=== PATIENT | male | born 1975 | race Caucasian/White ===

== ENCOUNTER → 2024-11-26 | Outpatient (CLI) | payer OTHER, SELFPAY ==
--- NOTE | 2024-11-26 08:06 | CDU_ITS ---
Reason For Study Reason For Study: Carotid stenosis Rt. Velocities/BP Lt. Velocities/BP Prox CCA 91.9/29.6 cm/sec. Prox CCA 106.9/20.1 cm/sec. Mid CCA 103.5/37.2 cm/sec. Mid CCA 117/28.6 cm/sec. Dist CCA 101.1/37.2 cm/sec. Dist CCA 97.4/21.2 cm/sec. Prox ICA 89.4/34.4 cm/sec. Prox ICA 59.8/21.1 cm/sec. Mid ICA 94.9/42.1 cm/sec. Mid ICA 57/19.2 cm/sec. Dist ICA 90.5/38.8 cm/sec. Dist ICA 50.4/19.2 cm/sec. Rt. ICA/CCA = 0.92. Lt. ICA/CCA = 0.51. Prox ECA 117.4/26.1 cm/sec. Prox ECA 88.8/17.6 cm/sec. Rt. Vert. 47.4/13.3 cm/sec. Lt. Vert. 35.1/10.9 cm/sec. Right Extracranial There is intimal thickening but no significant atherosclerotic plaque noted in the right common carotid artery. There is homogeneous, smooth atherosclerotic plaque noted in the right internal carotid artery. There is intimal thickening but no significant atherosclerotic plaque noted in the right external carotid artery. Antegrade flow is noted in the right vertebral artery. Left Extracranial There is intimal thickening but no significant atherosclerotic plaque noted in the left common carotid artery. There is heterogeneous, irregular atherosclerotic plaque noted in the left internal carotid artery. There is intimal thickening but no significant atherosclerotic plaque noted in the left external carotid artery. Antegrade flow is noted in the left vertebral artery. Procedure Carotid Duplex 55217. This is a Carotid Duplex examination using B-mode, color flow and specral Doppler. Exam performed in department. VL/Carotid Duplex Ultrasound Interpretation Summary Mild (<50%) stenosis right extracranial internal carotid. Mild (<50%) stenosis left extracranial internal carotid. Patent and antegrade vertebrals bilaterally. Ordering Physician: Latoya Gallagher Referring Physician: Latoya Gallagher Performed By: Tangela Gaytan RVT
--- OUTSIDE RECORDS SUMMARY | 2024-11-26 08:31 | XMS RPT_ITS | CCD ---
Author Organization [facility] Care Team Providers Care Holistic Pulser Name Role Phone YUN SOL MD Primary Care Unavailable YUN SOL MD Attending Unavailable CARLITA HICKMAN Consulting Unavailable YUN SOL MD Admitting Unavailable PROVIDER, UNKNOWN Consulting Unavailable PROVIDER, UNKNOWN Consulting Unavailable PROVIDER, UNKNOWN Consulting Unavailable YUN SOL MD Attending Unavailable CARLITA HICKMAN Consulting Unavailable YUN SOL MD Admitting Unavailable YUN SOL MD Primary Care Unavailable PROVIDER, UNKNOWN Consulting Unavailable PROVIDER, UNKNOWN Consulting Unavailable PROVIDER, UNKNOWN Consulting Unavailable Aileen ESPINOZA, Dr. Klein Primary Care Provider [phone] Dr. Latoya Gallagher MD Attending Provider Dr. Latoya Gallagher MD Referring Provider Latoya Gallagher Primary Care Unavailable Latoya Gallagher Attending Unavailable Latoya Gallagher Referring Unavailable Latoya Gallagher Attending Unavailable Latoya Gallagher Referring Unavailable Latoya Gallagher Primary Care Unavailable Latoya Gallagher Attending Unavailable Medications Current Medications Medication Drug Class(es) Dates Sig (Normalized) Sig (Original) aspirin 325 mg oral tablet (1 source) Platelet Aggregation Inhibitor, Nonsteroidal Anti-inflammatory Drug Start: 08-31-2021 take 1 tablet by mouth once daily Aspirin 325 mg tablet Active 325 mg PO DAILY August 31, 2021 12:00am clopidogrel 75 mg oral tablet (3 sources) [id number] Platelet Inhibitor Start: 08-31-2021 End: 11-01-2024 take 1 tablet by mouth once daily Clopidogrel 75 mg tablet Active 75 mg PO daily 90 0 November 01, 2024 7:45am folic acid 1 mg oral tablet (2 sources) Start: 08-31-2021 End: 05-02-2024 take 1 tablet by mouth once daily Folic Acid 1 mg tablet Active 1 mg PO daily 90 0 May 02, 2024 8:10am lisinopril 2.5 mg oral tablet (3 sources) Angiotensin Converting Enzyme Inhibitor Start: 08-31-2021 End: 11-01-2024 take 1 tablet by mouth once daily Lisinopril 2.5 mg tablet Active 2.5 mg PO daily 90 0 November 01, 2024 7:45am Semaglutide (Weight Loss) (1 source) Start: 11-01-2024 Semaglutide (Weight Loss) (Regis) 0.25 mg/0.5 mL pen injector Active 0.25 mg SC EVERY WEEK 2 November 01, 2024 12:00am administer weeks 1 through 4 of therapy Completed/Discontinued Medications Medication Drug Class(es) Dates Sig (Normalized) Sig (Original) atorvastatin 40 mg oral tablet (7 sources) HMG-CoA Reductase Inhibitor Start: 05-02-2024 End: 11-01-2024 Atorvastatin 40 mg tablet Discontinued 40 mg PO daily November 01, 2024 7:36am November 01, 2024 8:00am take in combination with 20mg for a total of 60mg Start: 08-31-2021 End: 11-01-2024 take 1 tablet by mouth once daily Atorvastatin 20 mg tablet Discontinued 20 mg PO daily November 01, 2024 7:36am November 01, 2024 8:00am cyclobenzaprine hydrochloride 10 mg oral tablet (1 source) Muscle Relaxant Start: 09-15-2021 End: 05-02-2024 take 1 tablet by mouth at bedtime as needed for muscle spasms Cyclobenzaprine 10 mg tablet Discontinued 10 mg PO BEDTIME as needed for muscle spasm 14 September 15, 2021 12:00am May 02, 2024 7:50am predniSONE 10 mg oral tablet (1 source) Start: 09-15-2021 End: 05-02-2024 take 4 tablets by mouth once daily, then take 3 tablets by mouth once daily, then take 2 tablets by mouth once daily, then take 1 tablet by mouth once daily Prednisone 10 mg tablet Discontinued 10 mg PO DAILY 30 0 September 15, 2021 12:00am May 02, 2024 7:48am 4 tablets daily for 3 days, then 3 tablets daily for 3 days, then 2 tablets daily for 3 days, then 1 tablet daily for 3 days Problems Active Problems Problem Classification Problem Date Documented Da te Episodic/Chronic Disorders of lipid metabolism (3 sources) Hyperlipidemia; Translations: [Hyperlipidemia, unspecified] Onset: 11-01-2024 05-02-2024 Chronic Essential hypertension (3 sources) Hypertensive disorder; Translations: [Essential (primary) hypertension] Onset: 11-01-2024 08-31-2021 Chronic Immunizations and screening for infectious disease (1 source) Patient encounter status; Translations: [Encounter for screening for COVID-19] 05-01-2024 Episodic Nutritional deficiencies (2 sources) Vitamin D deficiency; Translations: [Vitamin D deficiency, unspecified] Onset: 11-01-2024 11-01-2024 Chronic Occlusion or stenosis of precerebral arteries (3 sources) Carotid artery stenosis; Translations: [Occlusion and stenosis of unspecified carotid artery] Onset: 06-01-2024 11-01-2024 Chronic Other circulatory disease (1 source) History of transient ischemic attack; Translations: [Personal history of transient ischemic attack (TIA), and cerebral infarction without residual deficits] 11-01-2024 Episodic Other circulatory disease (1 source) Personal history of transient ischemic attack (TIA), and cerebral infarction without residual deficits; Translations: [Personal history of transient ischemic attack (TIA), and cerebral infarction without residual deficits] Onset: 11-01-2024 Episodic Spondylosis; intervertebral disc disorders; other back problems (1 source) Backache; Translations: [Dorsalgia, unspecified] 09-15-2021 Episodic Sprains and strains (1 source) Lower back injury; Translations: [Strain of muscle, fascia and tendon of lower back, initial encounter] 05-01-2024 Episodic Past or Other Problems Problem Classification Problem Date Documented Da te Episodic/Chronic Administrative/social admission (1 source) Persons encountering health services in other specified circumstances; Translations: [Persons encountering health services in other specified circumstances] Onset: 06-01-2024 Episodic Other screening for suspected conditions (not mental disorders or infectious disease) (1 source) Encounter for screening for malignant neoplasm of colon; Translations: [Encounter for screening for malignant neoplasm of colon] Onset: 06-01-2024 Episodic Residual codes; unclassified (1 source) Immunization not carried out because of patient refusal; Translations: [Immunization not carried out because of patient refusal] Onset: 06-01-2024 Episodic Results Test Name Value Interpretation Reference Range [facility] Internal Medicine Office Vis iton 10-30-2024 Internal Medicine Office Visit [facility] [address] [place], [place] [address] OFFICE VISIT Date of Service: 11/01/24 MR#: [id number] Acct: [id number] Name: MARTIR COELHO Rep #: [id number] : 1975 Provider: Dr. Latoya herrera MD Age/Sex: 49/M Location: [facility] Status: Signed Intake Vital Signs 05/02/24 07:56 11/01/24 07:37 Height 5 ft 7 in 5 ft 7 in Weight: 181 lb BMI 28.3 BP 122/84 H Blood Pressure Location Lt brachial Position Sitting Respiration 14 Pulse 58 L Pulse Source Monitor Temp 97.6 F L Temp Source Temporal Pulse Oximetry (%) 97 Oxygen Delivery Method room air Intake Visit Reasons: 6 M FU Stock Holder Required: No Is patient in pain?: No Allergies No Known Allergies Allergy (Verified 11/01/24 07:32) Medications ???Medication ???Instructions ???Recorded ???Confirmed ???Type aspirin 325 mg tablet 325 mg PO DAILY 08/31/21 11/01/24 History folic acid 1 mg tablet 1 mg PO QDAY #90 tabs 05/02/2401/15 Rx atorvastatin 20 mg tablet 20 mg PO QHS #90 tabs 11/01/24 Rx atorvastatin 40 mg tablet 40 mg PO QHS #90 tabs 11/01/24 Rx clopidogrel 75 mg tablet 75 mg PO QDAY #90 tabs 11/01/24 Rx lisinopril 2.5 mg tablet 2.5 mg PO QDAY #90 tabs 11/01/24 0 11/01/24 Rx semaglutide (weight loss) 0.25 0.25 mg (0.5 mL) subcut QWEEK #2 m L 11/01/24 11/01/24 Rx mg/0.5 mL subcutaneous pen injector (Wegovy) [facility] Medical History History of head injury Borderline hyperlipidemia Acute lumbar myofascial strain History of TIA (transient ischemic attack) Hypertension Surgical History S/P ACL repair History of eye surgery Family History Father Age: 73 High cholesterol Hypertension CVA (cerebral vascular accident) Diabetes Grandmother Heart disease Grandfather CVA (cerebral vascular accident) Social History household members: spouse current occupational status: employed current occupation: owns a [employer] Smoking Status: Never smoker alcohol intake: current alcohol intake frequency: holidays/special occasions only substance use type: does not use do you feel safe at home: Yes HPI HPI Details: MARTIR COELHO, is a 49 M who presents to the office today for a follow up. He is due for some routine blood work and is up to date on his screening. He previously declined any immunizations. He doesn't smoke and does need refills. He reports he is eating healthy some of the time and staying active. He doesn't check his blood pressure at home routinely. He states when he does check it, it is well controlled in the 120s/80s. He is taking his medication as prescribed without problems. He does try to monitor his salt and caffeine intake. He has a history of a TIA back in 2003. He reports he was visiting with his dad and reports he lost the use of the left side of his body. He states he had multiple episodes that day. He was admitted to [facility] and treated. He has been taking all of his medications as prescribed without problems. He states he hasn't had any further episodes since then. He was told he had carotid stenosis, but states it was recommended he be managed medically. He did see neurosurgery and neurology, but no longer sees any specialists. He reports he doesn't know if he heard anything about the carotid US. The patient has concerns about his weight. He reports he is interested in trying wegovy. He has no questions or concerns at this time. ROS Const Constitutional: Positive for weight change (weight gain); No body ache, chills, excessive sweating, fatigue, fever(s), frequent falls, headache(s), snoring, weakness, sleep problems or change in appetite Eyes Eyes: Positive for change in vision; No blurry vision, eye pain or Light sensitivity ENT ENT: No abnormal hearing, ear or mastoid pain, tinnitus, nasal congestion, headache(s), neck pain or sore throat Resp Respiratory: No cough, shortness of breath, snoring or wheezing Cardio Cardiology: No chest pain at rest, chest pain with exertion, excessive sweating, shortness of breath, dyspnea on exertion, lightheadedness, orthopnea, palpitations or other (no leg swelling) Gastro GI: No abdominal pain, change in bowel habits, constipation, cramping, diarrhea, nausea/dyspepsia or vomiting Genitourinary Male: No difficulty urinating, burning urination, painful urination, urinary incontinence or urinary frequency Musc Musculoskeletal: No abnormal gait, joint pain, back pain, limited range of motion, neck pain, numbness or tingling Skin Skin: No dry skin, redness, lesio (more content not included)... Normal [facility] Internal Medicine Office Vis iton 05-01-2024 Internal Medicine Office Visit [facility] [address] [place] [address] [place] [address] OFFICE VISIT Date of Service: 05/02/24 MR#: [id number] Acct: [id number] Name: MARTIR COELHO Rep #: [id number] : 1975 Provider: Dr. Latoya herrera MD Age/Sex: 49/M Location: [facility] Status: Signed Intake Vital Signs 08/31/21 07:02 05/02/24 07:56 Height 5 ft 7 in 5 ft 7 in Weight: 178 lb 6 oz BMI 27.9 BP 122/80 H Blood Pressure Location Lt brachial Position Sitting Respiration 12 Pulse 75 Pulse Source Monitor Temp 96.7 F L Temp Source Temporal Pulse Oximetry (%) 98 Oxygen Delivery Method room air Intake Visit Reasons: EST NEW PT - [facility] SENT Chief Complaint: est Stock Holder Required: No Accompanied by: Self Is patient in pain?: No Allergies No Known Allergies Allergy (Verified 05/02/24 07:47) Medications ???Medication ???Instructions ???Recorded ???Confirmed ???Type aspirin 325 mg tablet 325 mg PO DAILY 08/31/21 05/02/24 History atorvastatin 20 mg tablet 20 mg PO QHS #90 tabs 05/02/2402/14 Rx clopidogrel 75 mg tablet 75 mg PO QDAY #90 tabs 05/02/24 Rx folic acid 1 mg tablet 1 mg PO QDAY #90 tabs 05/02/2402/14 Rx lisinopril 2.5 mg tablet 2.5 mg PO QDAY #90 tabs 05/02/24 0 05/02/24 Rx Have you fallen in the past year?: No Nurse's Note: refills needed establishing [facility] Medical History (Updated 05/02/24 @ 08:[address] Latoya Gallagher MD) History of head injury Borderline hyperlipidemia Acute lumbar myofascial strain History of TIA (transient ischemic attack) Hypertension Surgical History (Updated 05/02/24 @ 08:[address] Latoya Gallagher MD) S/P ACL repair History of eye surgery Family History (Updated 05/02/24 @ 08:[address] Latoya Gallagher MD) Father Age: 73 High cholesterol Hypertension CVA (cerebral vascular accident) Diabetes Grandmother Heart disease Grandfather CVA (cerebral vascular accident) Social History (Updated 05/02/24 @ 08:[address] Latoya Gallagher MD) household members: spouse current occupational status: employed current occupation: owns a [employer] Smoking Status: Never smoker alcohol intake: current alcohol intake frequency: holidays/special occasions only substance use type: does not use do you feel safe at home: Yes HPI HPI Chief Complaint: est Details: MARTIR COELHO, is a 49 M who presents to the office today to establish care. He was seeing Dr. Sol and last saw them in January. He is up to date on his routine blood work and is due for some colon screening. He doesn't want any immunizations. He doesn't smoke and does need refills. He reports he is eating healthy most of the time and staying active. The patient has been on blood pressure medications for 21 years. He doesn't check his blood pressure at home routinely. He states when he does check it, it is well controlled. He is taking his medication as prescribed without problems. He does try to monitor his salt and caffeine intake. He has a history of a TIA back in 2003. He reports he was visiting with his dad and reports he lost the use of the left side of his body. He states he had multiple episodes that day. He was admitted to [facility] and treated. He has been taking all of his medications as prescribed without problems. He states he hasn't had any further episodes since then. He changed his lifestyle dramatically and lost weight following that. He was told he had carotid stenosis, but states it was recommended he be managed medically. He did see neurosurgery and neurology, but no longer sees any specialists. He has no questions or concerns at this time. ROS Const Constitutional: Positive for weight change (fluctuates); No body ache, excessive sweating, fatigue, fever(s), frequent falls, headache(s), snoring, weakness, sleep problems or change in appetite Eyes Eyes: No blurry vision, change in vision, eye pain or Light sensitivity ENT ENT: No abnormal hearing, ear or mastoid pain, tinnitus, nasal congestion, headache(s), neck pain or sore throat Resp Respiratory: No cough, shortness of breath, snoring or wheezing Cardio Cardiology: No chest pain at rest, chest pain with exertion, excessive sweating, shortness of breath, dyspnea on exertion, lightheadedness, orthopnea, palpitations or other (no leg swelling) Gastro GI: No abdominal pain, change in bowel habits, constipation, cramping, diarrhea, nausea/dyspepsia or vomiting Genitourinary Male: No difficulty urinating, burning urination, painful urination, urinary incontinence, urinary frequency or blood in urine Musc Musculoskeletal: No abnormal gait, joint pain, back pain, limited range of motion, neck pain, numbness, stiffness, tingling or Arthritis Skin Skin: No dry skin, redness, lesions, itchy eyes, rash or wounds (more content not included)... Normal [facility] LIPID PROFILEon 01-06-2024 Cholesterol [Mass/Vol] 227 mg/dL Normal 0 - 240 [facility] Comment on above: Performed By: #### 2 [id number] #### [facility],[address] [place] [address] Cholesterol in HDL [Mass/Vol] 60 mg/dL Normal 40 - 60 [facility] Comment on above: Result Comment: PERF ORMED AT [facility] (SEE SCANNED REPORT) CCL REFERENCE RANGE = > 39 mg/dL Performed By: #### 2 [id number] #### [facility],[address] [place] [address] Cholesterol in LDL [Mass/Vol] 106 mg/dL Normal 0 - 129 [facility] Comment on above: Result Comment: ==== FOLLOWING RESULTS REPORTED IN ERROR Comment CCL REFERENCE RA<-- *Previously reported in error 01/06/24.1145.JAM. Performed By: #### 2 [id number] #### [facility],[address] [place] [address] Cholesterol.total/C holesterol in HDL [Mass ratio] 3.8 {ratio} Normal 0.0 - 5.0 [facility] Comment on above: Performed By: #### 2 [id number] #### [facility],[address] [place] [address] ERROR DUE TO ENTRY ERROR Normal [facility] Comment on above: Result Comment: OMIS LATOYA OF UNITS Performed By: #### 2 [id number] #### [facility],[address] [place] [address] Lipid 1996 panel Normal [facility] Comment on above: Result Comment: CORRECTED REPORT LIPID PROFILE Performed By: #### 2 [id number] #### [facility],[address] [place] [address] Triglyceride [Mass/Vol] 303 mg/dL High 0 - 150 [facility] Comment on above: Performed By: #### 2 90111 #### [facility],[address] [place] [address] CBC + DIFFon 01-05-2024 Baso # 0.02 x10EE3/UL Normal 0.00 - 0.10 [facility] Comment on above: Performed By: #### 2 64486 #### [facility],[address] [place], [place] [id number] Basophils/100 WBC (Bld) 0.3 % Normal 0.0 - 2.0 [facility] Comment on above: Performed By: #### 2 74817 #### [facility],[address] [place] [address] CBC + DIFF Normal [facility] Comment on above: Result Comment: CBC- COMPLETE BLOOD COUNT Performed By: #### 2 20247 #### [facility],[address] [place] [address] EO # 0.10 x10EE3/UL Normal 0.00 - 0.50 [facility] Comment on above: Performed By: #### 2 35048 #### [facility],[address] [place] [address] Eosinophils/100 WBC (Bld) 1.8 % Normal 0.0 - 7.0 [facility] Comment on above: Performed By: #### 2 97430 #### [facility],[address] [place] [address] Erythrocyte distribution width (RBC) [Ratio] 14.2 % Normal 12.0 - 15.6 [facility] Comment on above: Performed By: #### 2 33839 #### [facility],[address] [place] [address] Hematocrit (Bld) [Volume fraction] 45.5 % Normal 40.0 - 52.0 [facility] Comment on above: Performed By: #### 2 [id number] #### [facility],[address] [place] [address] Hemoglobin (Bld) [Mass/Vol] 15.3 g/dL Normal 13.0 - 17.5 [facility] Comment on above: Performed By: #### 2 [id number] #### [facility],[address] [place] [address] Lymph # 2.16 x10EE3/UL Normal 0.80 - 2.80 [facility] Comment on above: Performed By: #### 2 44933 #### [facility],[address] [place] [address] Lymphocytes/100 WBC (Bld) 38.6 % Normal 20.0 - 45.0 [facility] Comment on above: Performed By: #### 2 77704 #### [facility],[address] [place] [address] MANUAL DIFF N/A Normal [facility] Comment on above: Performed By: #### 2 46146 #### [facility],[address] [place] [address] MCH (RBC) [Entitic mass] 30 pg Normal 27 - 33 [facility] Comment on above: Performed By: #### 2 97396 #### [facility],[address] [place] [address] MCHC 34 X10 3 Normal 32 - 36 [facility] Comment on above: Performed By: #### 2 90896 #### [facility],[address] [place] [address] MCV (RBC) [Entitic vol] 90 fL Normal 81 - 98 [facility] Comment on above: Performed By: #### 2 33299 #### [facility],[address] [place] [address] Karnes # 0.53 x10EE3/UL Normal 0.20 - 1.00 [facility] Comment on above: Performed By: #### 2 05940 #### [facility],[address],[place] [address] MONOS % 9.4 % Normal 0.0 - 10.0 [facility] Comment on above: Performed By: #### 2 32189 #### [facility],[address] [place] [address] Morphology Juice (Bld) [Interp] N/A Normal [facility] Comment on above: Performed By: #### 2 65487 #### [facility],[address] [place] [address]103 Neut # 2.79 x10EE3/UL Normal 1.50 - 7.10 [facility] Comment on above: Performed By: #### 2 34305 #### [place] [id number] Neutrophils/100 WBC (Bld) 49.9 % Normal 46.0 - 76.0 [facility] Comment on above: Performed By: #### 2 62185 #### [place] [id number] PLATELET 241 x10EE3/UL Normal 150 - 450 [facility] Comment on above: Performed By: #### 2 40771 #### [place] [address] Platelet mean volume (Bld) [Entitic vol] 6.9 fL Normal 6.4 - 10.5 [facility] Comment on above: Result Comment: AUTO MATED DIFFERENTIAL Performed By: #### 2 [id number] #### [address] [address] RBC 5.05 x 10EE6/UL Normal 4.50 - 6.00 [facility] Comment on above: Performed By: #### 2 30221 #### [address] [address] WBC 5.6 x 10EE3/UL Normal 4.5 - 10.8 [facility] Comment on above: Performed By: #### 2 15568 #### [place] [address],[place] [address] CMP with eGFRon 01-05-2024 AGE 48 years Normal [facility] Comment on above: Performed By: #### 2 74874 #### [facility],[address] [place] [address] Albumin [Mass/Vol] 3.7 g/dL Normal 3.4 - 5.0 [facility] Comment on above: Performed By: #### 2 04390 #### [facility],[address] [place] [address] Albumin/Globulin [Mass ratio] 1.2 {ratio} Normal 0.9 - 1.6 [facility] Comment on above: Performed By: #### 2 61576 #### [facility],[address] [place] [address] ALK PHOS 69 U/L Normal 46 - 116 [facility] Comment on above: Performed By: #### 2 46605 #### [facility],[address] [place] [address]372 ALT [Catalytic activity/Vol] 54 U/L Normal 16 - 63 [facility] Comment on above: Performed By: #### 2 21191 #### [facility],[address] [place] [address] Anion gap [Moles/Vol] 14 mmol/L Normal 10 - 20 [facility] Comment on above: Performed By: #### 2 21271 #### [facility],[address] [place] [address]275 AST [Catalytic activity/Vol] 31 U/L Normal 15 - 37 [facility] Comment on above: Performed By: #### 2 07246 #### [facility],[address] [place] [address] 70489 B/C RATIO 16 ratio Normal 0 - 30 [facility] Comment on above: Performed By: #### 2 69461 #### [facility],[address] [place] [address] 29318 Bilirubin [Mass/Vol] 0.5 mg/dL Normal 0.2 - 1.0 [facility] Comment on above: Performed By: #### 2 35895 #### [facility],[address] [place] [address] 24951 Calcium [Mass/Vol] 8.8 mg/dL Normal 8.5 - 10.1 [facility] Comment on above: Performed By: #### 2 33466 #### [facility],[address] [place] [address] 62197 Chloride [Moles/Vol] 105 mmol/L Normal 98 - 107 [facility] Comment on above: Performed By: #### 2 81625 #### [facility],[address] [place] [address] 13476 CMP with eGFR Normal [facility] Comment on above: Result Comment: COMP REHENSIVE METABOLIC PANEL Performed By: #### 2 56310 #### [facility],[address] [place] [address] 85242 CO2 [Moles/Vol] 26.3 mmol/L Normal 21.0 - 32.0 [facility] Comment on above: Performed By: #### 2 15307 #### [facility],[address] [place] [address] 09755 Creatinine [Mass/Vol] 1.13 mg/dL Normal 0.70 - 1.30 [facility] Comment on above: Performed By: #### 2 09660 #### [facility],[address] [place] [address] 93159 GFR/1.73 sq M.predicted among non-blacks MDRD (S/P/Bld) [Vol rate/Area] mL/min/{1.73_m2} Normal 60 - 999 [facility] Comment on above: Performed By: #### 2 33748 #### [facility],[address] [place] [address] 94707 Result Comment: ACCO RDING TO THE NATIONAL KIDNEY DISEASE EDUCATION PROGRAM(NKDE), A NORMAL eGFR IS A VALUE GREATER THAN OR EQUAL TO 60 ML/MIN/1.73 SQ METERS. CHRONIC KIDNEY DISEASE: <60mL/MIN/1.73 SQ METERS KIDNEY FAILURE: <15mL/MIN/1.73 SQ METERS THIS TEST SHOULD ONLY BE USED FOR PATIENTS 18 YEARS OF AGE AND OLDER. Globulin (S) [Mass/Vol] 3.1 g/dL Normal 1.5 - 3.8 [facility] Comment on above: Performed By: #### 2 94009 #### [facility],[address] [place] [address] 45342 Glucose [Mass/Vol] 99 mg/dL Normal 74 - 106 [facility] Comment on above: Performed By: #### 2 67489 #### [facility],[address] [place] [address] 79384 Potassium [Moles/Vol] 4.1 mmol/L Normal 3.5 - 5.1 [facility] Comment on above: Performed By: #### 2 11563 #### [facility],[address] [place] [address] [place] [address] Protein [Mass/Vol] 6.8 g/dL Normal 6.4 - 8.2 [facility] Comment on above: Performed By: #### 2 38600 #### [facility],[address] [place] [address] [place] [address] Sodium [Moles/Vol] 141 mmol/L Normal 136 - 145 [facility] Comment on above: Performed By: #### 2 53982 #### [facility],[address] [place] [address] [place] [address] Urea nitrogen [Mass/Vol] 18 mg/dL Normal 7 - 18 [facility] Comment on above: Performed By: #### 2 87921 #### [facility],[address] [place] [address] 68855 VITAMIN D, 25 HYDROXYon 11-1 VitD 27.70 ng/mL Low 30.00 - 100 [facility] Comment on above: Result Comment: 25-O HD3 indicates both endogenous production and supplementation. 25-OHD2 is an indicator of exogenous sources, such as diet or supplementation. Therapy is based on measurement of Total 25-OHD, with levels <20 ng/mL indicative of Vitamin D deficiency, while levels between 20 ng/mL and 30 ng/mL suggest insufficiency. Optimal levels are >=30ng/mL. Vitamin D, 25-OH D3 Not Established Vitamin D, 25-OH D2 Not Established Performed By: #### 2 83940 #### [facility],[address] [place] [address] 82956 CBC + DIFFon 06-29-2023 Baso # 0.02 x10EE3/UL Normal 0.00 - 0.10 [facility] Comment on above: Performed By: #### 2 89985 #### [address] [address] Basophils/100 WBC (Bld) 0.3 % Normal 0.0 - 2.0 [facility] Comment on above: Performed By: #### 2 90602 #### [address] [address] CBC + DIFF Normal [facility] Comment on above: Result Comment: CBC- COMPLETE BLOOD COUNT Performed By: #### 2 32205 #### [address] [address] EO # 0.13 x10EE3/UL Normal 0.00 - 0.50 [facility] Comment on above: Performed By: #### 2 99470 #### [facility],[address] [place] [address] 58903 Eosinophils/100 WBC (Bld) 2.4 % Normal 0.0 - 7.0 [facility] Comment on above: Performed By: #### 2 24623 #### [address] [address] Erythrocyte distribution width (RBC) [Ratio] 14.5 % Normal 12.0 - 15.6 [facility] Comment on above: Performed By: #### 2 41844 #### [facility],[address] [place] [address] Hematocrit (Bld) [Volume fraction] 46.7 % Normal 40.0 - 52.0 [facility] Comment on above: Performed By: #### 2 32741 #### [facility],[address] [place] [address] Hemoglobin (Bld) [Mass/Vol] 15.8 g/dL Normal 13.0 - 17.5 [facility] Comment on above: Performed By: #### 2 00803 #### [facility],[address] [place] [address] Lymph # 2.07 x10EE3/UL Normal 0.80 - 2.80 [facility] Comment on above: Performed By: #### 2 55352 #### [place] [address] Lymphocytes/100 WBC (Bld) 36.9 % Normal 20.0 - 45.0 [facility] Comment on above: Performed By: #### 2 66657 #### [facility],[address] [place] [address] MANUAL DIFF N/A Normal [facility] Comment on above: Performed By: #### 2 07225 #### [facility],[address] [place], [place] [id number] MCH (RBC) [Entitic mass] 30 pg Normal 27 - 33 [facility] Comment on above: Performed By: #### 2 13966 #### [place] [id number] MCHC 34 X10 3 Normal 32 - 36 [facility] Comment on above: Performed By: #### 2 40588 #### [place] [id number] MCV (RBC) [Entitic vol] 89 fL Normal 81 - 98 [facility] Comment on above: Performed By: #### 2 50845 #### [facility],[address] [place] [address]3963 Karnes # 0.49 x10EE3/UL Normal 0.20 - 1.00 [facility] Comment on above: Performed By: #### 2 10715 #### [facility],[address] [place] [address] 70527 MONOS % 8.7 % Normal 0.0 - 10.0 [facility] Comment on above: Performed By: #### 2 70158 #### [facility],[address] [place] [address] 57545 Morphology Juice (Bld) [Interp] N/A Normal [facility] Comment on above: Performed By: #### 2 45106 #### [facility],[address] [place] [address] 85137 Neut # 2.90 x10EE3/UL Normal 1.50 - 7.10 [facility] Comment on above: Performed By: #### 2 73524 #### [facility],[address] [place] [address] 32518 Neutrophils/100 WBC (Bld) 51.7 % Normal 46.0 - 76.0 [facility] Comment on above: Performed By: #### 2 82505 #### [facility],[address] [place] [address] 54082 PLATELET 258 x10EE3/UL Normal 150 - 450 [facility] Comment on above: Performed By: #### 2 92976 #### [facility],[address] [place] [address] 45676 Platelet mean volume (Bld) [Entitic vol] 7.4 fL Normal 6.4 - 10.5 [facility] Comment on above: Result Comment: AUTO MATED DIFFERENTIAL Performed By: #### 2 15390 #### [facility],[address] [place] [address] 37237 RBC 5.24 x 10EE6/UL Normal 4.50 - 6.00 [facility] Comment on above: Performed By: #### 2 71396 #### [facility],[address] [place] [address] 50304 WBC 5.6 x 10EE3/UL Normal 4.5 - 10.8 [facility] Comment on above: Performed By: #### 2 67136 #### [facility],[address] [place] [address] 85137 CMP with eGFRon 06-29-2023 AGE 48 years Normal [facility] Comment on above: Performed By: #### 2 59155 #### [facility],[address] [place] [address] 87159 Albumin [Mass/Vol] 3.8 g/dL Normal 3.4 - 5.0 [facility] Comment on above: Performed By: #### 2 25949 #### [facility],[address] [place], [place] [phone] Albumin/Globulin [Mass ratio] 1.4 {ratio} Normal 0.9 - 1.6 [facility] Comment on above: Performed By: #### 2 07938 #### [facility],[address] [place] [address] 58508 ALK PHOS 58 U/L Normal 46 - 116 [facility] Comment on above: Performed By: #### 2 52057 #### [facility],[address] [place] [address] 11029 ALT [Catalytic activity/Vol] 28 U/L Normal 16 - 63 [facility] Comment on above: Performed By: #### 2 78409 #### [facility],[address] [place] [address] 11335 Anion gap [Moles/Vol] 14 mmol/L Normal 10 - 20 [facility] Comment on above: Performed By: #### 2 18379 #### [facility],[address] [place] [address] 18465 AST [Catalytic activity/Vol] 23 U/L Normal 15 - 37 [facility] Comment on above: Performed By: #### 2 58820 #### [facility],[address] [place], [place] [phone] B/C RATIO 14 ratio Normal 0 - 30 [facility] Comment on above: Performed By: #### 2 51821 #### [facility],[address] [place] [address] Bilirubin [Mass/Vol] 0.7 mg/dL Normal 0.2 - 1.0 [facility] Comment on above: Performed By: #### 2 52091 #### [facility],[address] [place] [address] Calcium [Mass/Vol] 8.6 mg/dL Normal 8.5 - 10.1 [facility] Comment on above: Performed By: #### 2 50919 #### [facility],[address] [place], [place] [phone] Chloride [Moles/Vol] 105 mmol/L Normal 98 - 107 [facility] Comment on above: Performed By: #### 2 17825 #### [facility],[address] [place] [address] CMP with eGFR Normal [facility] Comment on above: Result Comment: COMP REHENSIVE METABOLIC PANEL Performed By: #### 2 96808 #### [facility],[address] [place] [address] 08468 CO2 [Moles/Vol] 25.1 mmol/L Normal 21.0 - 32.0 [facility] Comment on above: Performed By: #### 2 19543 #### [facility],[address] [place] [address] 15725 Creatinine [Mass/Vol] 1.20 mg/dL Normal 0.70 - 1.30 [facility] Comment on above: Performed By: #### 2 55459 #### [facility],[address] [place] [address] 71002 GFR/1.73 sq M.predicted among non-blacks MDRD (S/P/Bld) [Vol rate/Area] mL/min/{1.73_m2} Normal 60 - 999 [facility] Comment on above: Performed By: #### 2 17543 #### [facility],[address] [place] [address] 77500 Result Comment: ACCO RDING TO THE NATIONAL KIDNEY DISEASE EDUCATION PROGRAM(NKDE), A NORMAL eGFR IS A VALUE GREATER THAN OR EQUAL TO 60 ML/MIN/1.73 SQ METERS. CHRONIC KIDNEY DISEASE: <60mL/MIN/1.73 SQ METERS KIDNEY FAILURE: <15mL/MIN/1.73 SQ METERS THIS TEST SHOULD ONLY BE USED FOR PATIENTS 18 YEARS OF AGE AND OLDER. Globulin (S) [Mass/Vol] 2.8 g/dL Normal 1.5 - 3.8 [facility] Comment on above: Performed By: #### 2 88215 #### [facility],[address] [place] [address] 33777 Glucose [Mass/Vol] 95 mg/dL Normal 74 - 106 [facility] Comment on above: Performed By: #### 2 82284 #### [facility],[address] [place] [address] 35766 Potassium [Moles/Vol] 3.9 mmol/L Normal 3.5 - 5.1 [facility] Comment on above: Performed By: #### 2 18038 #### [facility],[address] [place] [address] 82914 Protein [Mass/Vol] 6.6 g/dL Normal 6.4 - 8.2 [facility] Comment on above: Performed By: #### 2 84437 #### [facility],[address] [place] [address] 83931 Sodium [Moles/Vol] 140 mmol/L Normal 136 - 145 [facility] Comment on above: Performed By: #### 2 49240 #### [place] [address],[place] [address] Urea nitrogen [Mass/Vol] 17 mg/dL Normal 7 - 18 [facility] Comment on above: Performed By: #### 2 41170 #### [facility],[address] [place] [address] 53060 LIPID PROFILEon 06-29-2023 Cholesterol [Mass/Vol] 187 mg/dL Normal 0 - 240 [facility] Comment on above: Performed By: #### 2 94881 #### [facility],[address] [place] [address] 93053 Cholesterol in HDL [Mass/Vol] 67 mg/dL High 40 - 60 [facility] Comment on above: Performed By: #### 2 06579 #### [facility],[address] [place] [address] 15690 Cholesterol in LDL [Mass/Vol] 103 mg/dL Normal 0 - 129 [facility] Comment on above: Performed By: #### 2 18568 #### [facility],[address] [place] [address] 51888 Cholesterol.total/C holesterol in HDL [Mass ratio] 2.8 {ratio} Normal 0.0 - 5.0 [facility] Comment on above: Performed By: #### 2 06880 #### [facility],[address] [place] [address] 40139 Lipid 1996 panel Normal [facility] Comment on above: Result Comment: LIPI D PROFILE Performed By: #### 2 77692 #### [facility],[address] [place] [address] 41724 Triglyceride [Mass/Vol] 86 mg/dL Normal 0 - 150 [facility] Comment on above: Performed By: #### 2 20461 #### [facility],[address] [place] [address] 06442 Ultra-sensitive CRPon 2020 UltraSens C-ReacProt 1.6 mg/L Normal <3.1 [facility] Comment on above: Performed By: #### H SCRP #### [facility] Routine Lab [address] [place] [id number] Vital Signs Date Time Vital Sign Value Performing Clinician Shasha flores 11-01-2024 07:37-0400 Body height 170.[address] Latoya Gallagher MD Work Phone: [facility] 11-01-2024 07:37-0400 Body mass index (BMI) [Ratio] 28.3 kg/m2 Dr. Latoya Gallagher MD Work Phone: [facility] 11-01-2024 07:37-0400 Body temperature 97.6 [degF] Dr. Latoya Gallagher MD Work Phone: [facility] 11-01-2024 07:37-0400 Body weight 82.[address] Latoya Gallagher MD Work Phone: [facility] 11-01-2024 07:37-0400 Diastolic blood pressure 84 mm[Hg] Dr. Latoya Gallagher MD Work Phone: [facility] 11-01-2024 07:37-0400 Heart rate 58 /min Dr. Latoya Gallagher MD Work Phone: [facility] 11-01-2024 07:37-0400 Respiratory rate 14 /min Dr. Latoya Gallagher MD Work Phone: [facility] 11-01-2024 07:37-0400 SaO2% (BldA) [Mass fraction] 97 % Dr. Latoya Gallagher MD Work Phone: [facility] 11-01-2024 07:37-0400 Systolic blood pressure 122 mm[Hg] Dr. Latoya Gallagher MD Work Phone: [facility] Encounters Encounter Date Encounter Type Care Provider Facility Start: 11-26-2024 ambulatory Latoya Gallagher Facility :[facility] Start: 11-01-2024 End: 11-01-[address] Latoya Gallagher MD -[facility] Work Phone: Start: 11-01-2024 End: 11-01-[address] Latoya Gallagher MD Work Phone: -[facility] Start: 05-02-2024 End: 05-02-2024 ambulatory Latoya Gallagher Facility:[facility] Start: 01-05-2024 End: 01-05-2024 ambulatory YUN ESPINOZA [facility] Start: 06-29-2023 End: 06-29-2023 ambulatory YUN ESPINOZA [facility] Procedures Date Procedure Procedure Detail Performing Clinician Start: 06-29-2023 PSA screening YUN Penny Comment on above: Performed By: #### 2 [id number] #### [facility],[address] [place] [address] Plan of Treatment Date Care Activity Detail Author CBC W Auto Differential panel - Blood [facility] Comprehensive metabo lic 1999 panel - Serum or Plasma [facility] Lipid 1996 panel - Serum or Plasma [facility] Vitamin D, 25-hydroxy measurement [facility] Immunizations Immunization Date Immunization Notes Care Provider [facility] 08-31-2021 hepatitis B vaccine, adult dosage Dr. Latoya Gallagher MD Work Phone: [facility] 08-31-2021 tetanus toxoid, redu simone diphtheria toxoid, and acellular pertussis vaccine, adsorbed Dr. Latoya Gallagher MD Work Phone: [facility] 08-31-[address] polysaccharide vaccine Dr[address] Latoya Gallagher MD Work Phone: [facility] 07-13-2013 measles, mumps and rubella virus vaccine Dr. Latoya Gallagher MD Work Phone: [facility] 02-24-2010 tetanus toxoid, redu simone diphtheria toxoid, and acellular pertussis vaccine, adsorbed Dr. Latoya Gallagher MD Work Phone: [facility] Payers Date Payer Category Payer Self-pay 2024 Private Health Insurance [id number] 1975 Unknown [id number] [id number] 1975 Unknown [id number] 2.16.8 [id number] Unknown [id number] 2.16.8 [id number] Unknown [id number] 2.16.8 [id number] Unknown [id number] 2.16.8 [id number] Social History Date Type Detail Facility Start: 05-02-[address] [facility] Never smoked tobacco (finding) [facility] Start: 1975 Sex Assigned At Male [facility] Evaluation note Note Date & Type Note Facility Evaluation note Diagnosis Onset Date Resolution Stenosis of carotid artery noneactive November 01, 2024 7:29am Mixed hyperlipidemia noneactive Oct 7:29am Essential hypertension noneactive [facility]2024 7:29am History of TIA (transient ischemic attack) noneactive November 01, 2024 7:29am Vitamin D deficiency noneactive Oct 7:29am [facility] Work Phone: Reason for referral (narrative) Note Date & Type Note Facility Reason for referral (narrative) No reason for referral information available [facility] Work Phone: Summary Purpose Family History No Family History Records Found Relationship Condition Age at Onset Recorded Date/T burke father High blood cholesterol Unknown Hypertension Unknown Cerebrovascular accident (CVA) Unknown Diabetes mellitus Unknown grandmother Cardiac disease Unknown grandfather Cerebrovascular accident (CVA) Unknown Advance Directives No Advanced Directives Records FoundNo Advanced Directives Records FoundNo Advanced Directives Records Found Chief Complaint and Reason for Visit Chief Complaint Admit Date 6 M FU November 01, 2024 7:29am Reason for Visit Admit Date Stenosis of carotid artery October 7:29am Mixed hyperlipidemia November 01 7:29am Essential hypertension November 01 025 7:29am History of TIA (transient ischemic attac k) November 01, 2024 7:29am Vitamin D deficiency November 01 7:29am Additional Source Comments (unrecognized sect ion and content) No Status Records FoundNo Status Records FoundNo Status Records Found INFORMATION SOURCE (unrecogn ized section and content) DATE CREATED AUTHOR 10/10/2020 [facility] DATE CREATED AUTHOR AUTHOR'S ORGANIZ ATION 01/07/2024 [facility] DATE CREATED AUTHOR AUTHOR'S ORGANIZ ATION 11/15/2024 [facility] Care Teams (unrecognized sec tion and content) Team Status: Active Member Role/Relationship Status Dates Dr. Latoya Gallagher MD Primary Care Provider Active Team Status: Inactive Member Role/Relationship Status Dates Dr. Latoya Gallagher MD Primary Care Provider Active Start: November 01, 2024 End: November 01, 2024 Dr. Latoya Gallagher MD Attending Provider Active Start: November 01, 2024 End: November 01, 2024 Dr. Latoya Gallagher MD Referring Provider Active Start: November 01, 2024 End: November 01, 2024 Goals (unrecognized section and content) Goals may be documented in a n alternate section FOR RECORDS PERTAINING TO PATIENTS WHO ARE OR HAVE BEEN ENROLLED IN A CHEMICAL DEPENDENCY/SUBSTANCEABUSE PROGRAM, SOME INFORMATION MAY BE OMITTED. This clinical summary was aggregated from multiple sources. Caution should be exercised in using it in the provision of clinical care. This summary normalizes information from multiple sources, and as a consequence, information in this document may materially change the coding, format and clinical context of patient data. In addition, data may be omitted in some cases. CLINICAL DECISIONS SHOULD BE BASED ON THE PRIMARY CLINICAL RECORDS. [facility] [employer] provides no warranty or guarantee of the accuracy or completeness of information in this document.
== END | disposition home or self-care (01) ==
PROVIDERS: PCP Internal Medicine; Referring Provider Internal Medicine; Visit Provider Internal Medicine
DX: I65.23 Occlusion and stenosis of bilateral carotid arteries (principal)
CPT/HCPCS: 93880